=== PATIENT | male | born 1975 | race Caucasian/White ===

== ENCOUNTER 2020-07-07 05:12 | Inpatient (IN) | payer MEDICAID, OTHER ==
[~2020-07-07] VITALS: Ht 167.6 cm; Wt 64.1 kg
[2020-07-07] MEDS ORDERED: KETOROLAC 30MG/ML VIAL IV STA (05:29)
[2020-07-07] MEDS ORDERED: SODIUM CHLORIDE 0.9% 1,000 ML IV ONE (05:30)
[2020-07-07 05:54] LABS: HEMATOCRIT. 48.5 % (42.0-52.0); HEMOGLOBIN. 16.2 g/dL (14.0-18.0); LYMPHOCYTES % 26.3 % (20.0-50.0); MEAN CORPUSCULAR HEMOGLOBIN 28.8 pg (28.0-32.0); MEAN PLATELET VOLUME 9.3 fl (7.4-10.4); MONOCYTES % 8.2 % (2.0-8.0); NEUTROPHILS % 63.5 % (40.0-76.0); PLATELET 147 x1000/uL (130-400); RED BLOOD CELL COUNT 5.64 mill/uL (4.7-6.1); RED CELL DISTRIBUTION WIDTH 13.8 % (11.6-14.6)
[2020-07-07 05:58] LABS: CHLORIDE 107 mEq/L (98-107)
[2020-07-07 10:26] LABS: CLARITY URINE CLOUDY (CLEAR); COLOR URINE ORANGE (YELLOW); KETONES URINE TRACE (NEGATIVE); LEUKOCYTE ESTERASE URINE TRACE (NEGATIVE); NITRITE URINE NEGATIVE (NEGATIVE); OCCULT BLOOD URINE 3+ (NEGATIVE); PH URINE 5.5 (4.5-8.0); PROTEIN URINE 1+ (NEGATIVE); SPECIFIC GRAVITY URINE 1.029 (1.005-1.030); UROBILINOGEN URINE 0.2 E.U./dL (0.2-1.0)
[2020-07-07 11:26] VITALS: BP 130/74
[2020-07-07 11:58] VITALS: BP 128/75
[2020-07-07] MEDS ORDERED: ONDANSETRON HCL 4MG/2ML INJ IV PRN (12:00)
[2020-07-07] MEDS ORDERED: ACETAMINOPHEN 325MG TABLET PO PRN (12:00)
[2020-07-07] MEDS ORDERED: CEFTRIAXONE 1,000 MG in DEXTROSE 5% WATER 50 ML IV SCH (13:00)
[2020-07-07 13:29] LABS: *AMPHETAMINES SCREEN URINE NEGATIVE (NEGATIVE)
[2020-07-07 13:30] LABS: *BENZODIAZEPINES SCREEN URINE NEGATIVE (NEGATIVE); *COCAINE SCREEN URINE NEGATIVE (NEGATIVE); CANNABINOID URINE SCREEN NEGATIVE (NEGATIVE); METHADONE URINE SCREEN NEGATIVE (NEGATIVE); OPIATES URINE SCREEN NEGATIVE (NEGATIVE); PHENCYCLIDINE URINE SCREEN NEGATIVE (NEGATIVE)
[2020-07-07 13:48] LABS: *BARBITURATES SCREEN URINE NEGATIVE (NEGATIVE)
[2020-07-07 16:00] VITALS: BP 121/76
[2020-07-07 18:27] VITALS: BP 121/70
[2020-07-07] MEDS ORDERED: LEVO500T89 MT (18:39)
[2020-07-07 20:00] VITALS: BP 149/87
== END 2020-07-07 20:50 | disposition home or self-care (01) | DRG 501 ==
LOC: ER 05:21 → 5WST 06:19 → ENRESERV 08:21
PROVIDERS: ADMIT Internal Medicine; ATTEND Internal Medicine
DX: N50.819 Testicular pain, unspecified (principal); N12 Tubulo-interstitial nephritis, not specified as acute or chronic; E78.5 Hyperlipidemia, unspecified
CPT/HCPCS: 36415; 74176; 76870; 80053; 80061; 80305; 81003; 84443; 84484; 85025; 93005; 93976; 99285; C1893; J0696; J1885; J7030; J7040; J7060